=== PATIENT | male | born 1975 | race Two or more races ===

== ENCOUNTER 2019-05-10 11:06 | Emergency (ER) | payer SELFPAY ==
[~2019-05-10] VITALS: Ht 167.6 cm; Wt 77.1 kg
[2019-05-10 14:10] VITALS: BP 134/81
== END 2019-05-10 14:14 | disposition home or self-care (01) ==
LOC: ER 11:06
DX: R07.81 Pleurodynia (principal); Z88.0 Allergy status to penicillin; V43.52XA Car driver injured in collision with other type car in traffic accident, initial encounter; Y93.89 Activity, other specified; Y99.8 Other external cause status; Y92.410 Unspecified street and highway as the place of occurrence of the external cause
CPT/HCPCS: 71101; 73030